=== PATIENT | female | born 1975 | race Caucasian/White ===

== ENCOUNTER 2017-06-09 02:28 | Emergency (ER) | payer BC ==
[~2017-06-09] VITALS: Ht 157.5 cm; Wt 70.3 kg
--- NOTE | ~2017-06-09 | CT2 ---
[facility] A Service of [facility] RADIOLOGY TEXT RESULTS PATIENT: IRAIDA GARDUNO LOCATION: SED : 79 UNIT #: [id number] AGE: [address]: Shelby Smith MD SEX: F ORDER DR: [id number] [address] [address] [id number] E MR#: [id number] Acc #: [id number] NAME: IRAIDA GARDUNO : 1975 SEX: F STUDY DATE/TIME: 06/09/2017 4:25 UNIT: SED ROOM: STUDY DESCRIPTION: CT Abd and Pelv W Cont Attending Physician: Shelby Smith M.D. Ordering Physician: Shelby Smith M.D. MEDICAL IMAGING REPORT This report is preliminary unless electronic signature is present. EXAM CT abdomen and pelvis with contrast, 06/09/2017. HISTORY 41-year-old female in the ED complaining of 3-4 day history of left-side abdomen pain and left flank/back pain. Nausea. TECHNIQUE CT examination of the abdomen and pelvis with IV contrast. GI contrast was not ordered. This CT exam was performed with one or more of the following radiation dose reduction techniques: automatic exposure control, adjustment of mA and/or kV according to patient size, and iterative reconstruction. FINDINGS ABDOMEN FINDINGS: Liver, pancreas and spleen are normal in size and appearance. No gallbladder distension or bile duct dilatation. Tiny nonobstructing calculus right mid kidney and tiny benign cyst left mid kidney. Kidneys, ureters. and bladder are otherwise negative. No evidence of urinary obstruction. Small bowel and colon are normal in caliber and appearance, as imaged. The appendix is normal. Moderate volume stool throughout the colon. Normal-caliber abdominal aorta. PELVIS FINDINGS: Small physiologic bilateral ovary cysts. Uterus, urinary bladder, and rectum are within normal limits. No inguinal hernia or significant abdominal wall hernia. Lung base images show no active disease. IMPRESSION [facility] A Service of [facility] RADIOLOGY TEXT RESULTS PATIENT: IRAIDA GARDUNO LOCATION: SED : 79 UNIT #: [id number] AGE: [address]: Shelby Smith MD SEX: F ORDER DR: Negative CT examination of the abdomen and pelvis. Dictated by... Jame De Santiago M.D. THIS IS AN ELECTRONICALLY VERIFIED REPORT Jame De Santiago M.D. at 06/09/2017 8:56 PM RGW/angella TD: 06/09/2017 09:49 JOB #: [id number] MEDICAL IMAGING REPORT Page 1 of 1
[2017-06-09] MEDS ORDERED: ORTHO-CYCLEN 281 EA (02:40)
[2017-06-09 03:13] LABS: BASOPHIL% 0.6 % (0-2.5); EOSINOPHIL# 0.1 X10e3 (0-0.7); EOSINOPHIL% 1.1 % (0.0-7.0); HEMATOCRIT 39.1 % (35.0-45.0); HEMOGLOBIN 13.5 gm/dL (12.0-16.0); LYMPHOCYTE# 1.6 X10e3 (1.0-3.5); LYMPHOCYTE% 26.7 % (17.0-45.0); MEAN CELL VOLUME 90.7 FL (83-96); MEAN CORPUSCULAR HEMOGLOBIN 31.4 PG (28-34); MEAN CORPUSCULAR HGB CONC 34.7 g/dL (30-36); MONOCYTE# 0.5 X10e3 (0-1.0); MONOCYTE% 7.4 % (3.0-12.0); NEUTROPHIL% 64.2 % (40-75); PLATELET COUNT 172 X10e3 (140-420); RED BLOOD COUNT 4.31 X10e (3.90-5.30); WHITE BLOOD COUNT 6.2 X10e3 (4.0-10.5)
[2017-06-09 03:14] LABS: DIFF IND NO
[2017-06-09 03:24] LABS: ALKALINE PHOSPHATASE 48 U/L (32-92); ALT (SGPT) 11 U/L (10-40); AMYLASE 30 U/L (0-46); AST (SGOT) 14 U/L (10-42); BILIRUBIN,TOTAL 0.5 mg/dL (0.2-2.0); BLOOD UREA NITROGEN 11 mg/dL (9-23); BUN/CREATININE RATIO 13.75; CALCIUM SERUM 8.7 mg/dL (8.4-10.2); CARBON DIOXIDE 24 mmol/L (22-31); CHLORIDE 107 mmol/L (100-111); CREATININE SERUM 0.8 mg/dL (0.6-1.4); GLUCOSE FASTING 95 mg/dL (70-110); LIPASE 35 U/L (22-51); POTASSIUM 3.6 mmol/L (3.5-5.1); PROTEIN TOTAL SERUM 7.5 g/dL (6.0-8.3); SODIUM 135 mmol/L (135-145)
[2017-06-09 03:25] LABS: BILIRUBIN, DIRECT <0.1 mg/dL (0.0-0.2); BILIRUBIN,INDIRECT 0.4 mg/dL (0.0-0.9)
[2017-06-09 03:39] LABS: URINE SOURCE CLEAN CATCH
[2017-06-09 03:42] LABS: URINE APPEARANCE CLEAR; URINE BILIRUBIN NEG (NEG); URINE BLOOD NEG (NEG); URINE COLOR YELLOW; URINE GLUCOSE NEG (NORM); URINE KETONE NEG (NEG); URINE LEUKOCYTE ESTERASE NEG (NEG); URINE NITRATE NEG (NEG); URINE PROTEIN NEG (NEG); URINE SPECIFIC GRAVITY <=1.005 (1.003-1.035); URINE UROBILINOGEN 0.2 MG/DL (NORM)
[2017-06-09 03:43] LABS: MICRO INDICATED? NO
== END 2017-06-09 05:11 | disposition home or self-care (01) ==
LOC: SED 02:28
PROVIDERS: Student in an Organized Health Care Education/Training Program
DX: R10.9 Unspecified abdominal pain (principal)
CPT/HCPCS: 36415; 74177; 80048; 80076; 81003; 82150; 83690; 84703; 85025; 96361; 96374; 96375; 99284; J2270; J2405; Q9967